=== PATIENT | male | born 1930 | race Caucasian/White ===

== ENCOUNTER 2019-05-19 09:37 | Inpatient (IN) | payer MEDICARE, OTHER ==
[2019-05-19] VITALS (7 sets, daily range): BP systolic 119–183; BP diastolic 62–123
[~2019-05-19] VITALS: Ht 182.8 cm; Wt 98.1 kg
[2019-05-19] MEDS ORDERED: DILTIAZEM 25 MG/5 ML INJ (CARDIZEM) VIAL IVP ONE ×2 (10:15→11:45)
--- NOTE | 2019-05-19 10:22 | ED Cardiac General ---
History of Present Illness General Chief Complaint: Cardiac/General Problems Stated Complaint: ELEV HR, BACK PAIN; BP 160/90 Nursing Triage Note: Patient c/o nausea, vomiting, elevated heart rate, and elevated blood pressure. Patient states that he started vomiting this moring and was seen by his pcp yesterday and started on digoxin for an elevated heart rate. Source: patient, family Exam Limitations: no limitations History of Present Illness Date Seen by Provider: May 19, 2019 Time Seen by Provider: 10:17 Initial Comments The patient is an 89-year-old white male who presents with a chief complaint of rapid heartbeat and nausea plus generalized malaise. He has recently been moved here from [place] by his family. He reports that he has had atrial fibrillation for some time. He had been off of his prescribed digitalis and Coumadin. He saw Dr. MCCORMICK yesterday and was placed back on digitalis and started on Pradaxa for anticoagulation purposes. He reports that today he awakened with nausea and general malaise. He was aware of his heart pounding. Yesterday it was said to be at 150/m. He does not have any known history of heart attack. He has not aware of his ejection fraction has might be obtained from echocardiogram. Timing/Duration: 4-6 hours Associated Systoms: Loss of Appetite, Nausea/Vomiting Allergies and Home Medications Allergies Coded Allergies: No Known Drug Allergies (Unverified , 05/19/19) Home Medications Bisacodyl 5 Mg Tablet, 10 MG PO HS, (Reported) TAKES 2 (5MG) TABLETS Diltiazem HCl 180 Mg Cap.er.24h, 360 MG PO DAILY Prescribed by: IFEANYI HIGUERA on 05/22/19955 Enoxaparin Sodium 100 Mg/1 Ml Syringe, 100 MG SC Q12H Prescribed by: IFEANYI HIGUERA on 05/22/19955 Lisinopril 20 Mg Tablet, 20 MG PO DAILY Prescribed by: IFEANYI HIGUERA on 05/22/19 09 Lovastatin 40 Mg Tablet, 40 MG PO HS, (Reported) Metoprolol Tartrate 50 Mg Tablet, 50 MG PO BID Prescribed by: IFEANYI HIGUERA on 05/22/19 09 Torsemide 10 Mg Tablet, 20 MG PO DAILY, (Reported) TAKES 2 (10MG) TABLETS Warfarin Sodium 3 Mg Tablet, 3 MG PO DAILY@1800 Prescribed by: IFEANYI HIGUERA on 05/22/19 0956 Zolpidem Tartrate 5 Mg Tablet, 5 MG PO HS, (Reported) [Sugar Support] , 1 CAP PO DAILY, (Reported) Patient Home Medication List Home Medication List Reviewed: Yes Review of Systems Review of Systems Constitutional: see HPI EENTM: No Symptoms Reported Respiratory: No Symptoms Reported Cardiovascular: See HPI, Irregular Heart Rate, Palpitations Gastrointestinal: Nausea Genitourinary: No Symptoms Reported Musculoskeletal: no symptoms reported Skin: no symptoms reported Psychiatric/Neurological: No Symptoms Reported Endocrine: No Symptoms Reported Hematologic/Lymphatic: No Symptoms Reported Past Zbrnxwv-Hstkbl-Vvknom Hx Patient Social History Alcohol Use: Denies Use Recreational Drug Use: No Smoking Status: Never a Smoker 2nd Hand Smoke Exposure: No Recent Foreign Travel: No Contact w/Someone Who Travel: No Recent Infectious Disease Expo: No Recent Hopitalizations: No Physical Abuse: No Sexual Abuse: No Mistreated: No Fear: No Seasonal Allergies Seasonal Allergies: No Past Medical History Surgeries: Yes Abdominal, Gallbladder, Orthopedic, Prostatectomy Respiratory: No Cardiac: Yes Atrial Fibrillation, Heart Attack, High Cholesterol, Hypertension Neurological: No Genitourinary: No Gastrointestinal: No Musculoskeletal: No Endocrine: No HEENT: No Cancer: No Psychosocial: No Integumentary: No Blood Disorders: No Physical Exam Vital Signs Capillary Refill : Less Than 3 Seconds Height, Weight, BMI Height: '" Weight: lbs. oz. kg; 29.00 BMI Method: General Appearance: Mild Distress, Moderate Distress HEENT: Normal ENT Inspection Respiratory: Chest Non Tender, Lungs Clear, Normal Breath Sounds, No Accessory Muscle Use, No Respiratory Distress Cardiovascular: Irregularly Irregular, Tachycardia Gastrointestinal: Normal Bowel Sounds, No Organomegaly Neurologic/Psychiatric: Alert, Oriented x3 Other comments 3+ and symmetric bilateral edema to just below the knees. There is red discoloration consistent with venous stasis dermatitis. The edema is relatively firm to palpation over the tibia. Progress/Results/Core Measures Results/Orders Lab Results Laboratory Tests Test 05/19/19 09:55 05/19/19 11:15 Range/Units White Blood Count 9.0 4.3-11.0 10^3/uL Red Blood Count 4.52 4.35-5.85 10^6/uL Hemoglobin 12.8 L 13.3-17.7 G/DL Hematocrit 40 40-54 % Mean Corpuscular Volume 89 80-99 FL Mean Corpuscular Hemoglobin 28 25-34 PG Mean Corpuscular Hemoglobin Concent 32 32-36 G/DL Red Cell Distribution Width 13.9 10.0-14.5 % Platelet Count 277 130-400 10^3/uL Mean Platelet Volume 12.3 H 7.4-10.4 FL Neutrophils (%) (Auto) 79 H 42-75 % Lymphocytes (%) (Auto) 13 12-44 % Monocytes (%) (Auto) 6 0-12 % Eosinophils (%) (Auto) 1 0-10 % Basophils (%) (Auto) 1 0-10 % Neutrophils # (Auto) 7.1 1.8-7.8 X 10^3 Lymphocytes # (Auto) 1.2 1.0-4.0 X 10^3 Monocytes # (Auto) 0.5 0.0-1.0 X 10^3 Eosinophils # (Auto) 0.1 0.0-0.3 10^3/uL Basophils # (Auto) 0.1 0.0-0.1 10^3/uL Sodium Level 139 135-145 MMOL/L Potassium Level 3.9 3.6-5.0 MMOL/L Chloride Level 96 L 98-107 MMOL/L Carbon Dioxide Level 26 21-32 MMOL/L Anion Gap 17 H 5-14 MMOL/L Blood Urea Nitrogen 30 H 7-18 MG/DL Creatinine 1.12 0.60-1.30 MG/DL Estimat Glomerular Filtration Rate > 60 BUN/Creatinine Ratio 27 Glucose Level 162 H 70-105 MG/DL Calcium Level 9.1 8.5-10.1 MG/DL Corrected Calcium 9.2 8.5-10.1 MG/DL Total Bilirubin 0.4 0.1-1.0 MG/DL Aspartate Amino Transf (AST/SGOT) 16 5-34 U/L Alanine Aminotransferase (ALT/SGPT) 7 0-55 U/L Alkaline Phosphatase 100 40-136 U/L Troponin I < 0.30 <0.30 NG/ML Total Protein 7.3 6.4-8.2 GM/DL Albumin 3.9 3.2-4.5 GM/DL Urine Color YELLOW Urine Clarity CLEAR Urine pH 6.0 5-9 Urine Specific [place] 1.010 L 1.016-1.022 Urine Protein NEGATIVE NEGATIVE Urine Glucose (UA) NEGATIVE NEGATIVE Urine Ketones NEGATIVE NEGATIVE Urine Nitrite NEGATIVE NEGATIVE Urine Bilirubin NEGATIVE NEGATIVE Urine Urobilinogen 0.2 NORMAL MG/DL Urine Leukocyte Esterase NEGATIVE NEGATIVE Urine RBC (Auto) NEGATIVE NEGATIVE Urine RBC RARE /HPF Urine WBC NONE /HPF Urine Squamous Epithelial Cells 0-2 /HPF Urine Crystals NONE /LPF Urine Bacteria NONE /HPF Urine Casts NONE /LPF Urine Mucus NEGATIVE /LPF Urine Culture Indicated NO My Orders Orders - LIZETTE CORDERO MD Cbc With Automated Diff (05/19/19 09:42) Comprehensive Metabolic Panel (05/19/19 09:42) Ua Culture If Indicated (05/19/19 09:42) Troponin I (05/19/19 09:42) Ekg Tracing (05/19/19 09:42) Diltiazem Injection (Cardizem Injection) (05/19/19 10:15) Ekg Tracing (05/19/19 10:55) Ondansetron Injection (Zofran Injectio (05/19/19 11:30) Diltiazem Injection (Cardizem Injection) (05/19/19 11:45) Medications Given in ED Vital Signs/I&O Blood Pressure Mean: 93 Departure Communication (Admissions) 1108 the patient is now controlled with a rate in the 90s. It would appear because he was taking Coumadin for 6 years that he has been chronically in atrial fibrillation. [address] Esparza hospitalist at [facility]. He accepts in transfer and will arrange cardiology Impression Primary Impression: Atrial fibrillation with RVR Additional Impression: venous stasis dermatitis Disposition: ADMITTED INPATIENT Condition: Stable/Unchanged Admissions Decision to Admit Reason: Admit from ER (General) Decision to Admit/Date: May 19, 2019 Time/Decision to Admit Time: 13:38 Departure-Patient Inst. Scripts Enoxaparin Sodium (Enoxaparin Sodium) 100 Mg/1 Ml Syringe 100 MG SC Q12H for 7 Days, #14 SYRINGE 0 Refills Prov: IFEANYI HIGUERA MD 05/22/19 Diltiazem HCl (Diltiazem 24Hr Cd) 180 Mg Cap.er.24h 360 MG PO DAILY for 90 Days, #180 CAP 0 Refills Prov: IFEANYI HIGUERA MD 05/22/19 Metoprolol Tartrate (Metoprolol Tartrate) 50 Mg Tablet 50 MG PO BID for 30 Days, #60 TAB 0 Refills Prov: IFEANYI HIGUERA MD 05/22/19 Warfarin Sodium (Coumadin) 3 Mg Tablet 3 MG PO DAILY@1800 for 30 Days, #30 TAB 0 Refills Prov: IFEANYI HIGUERA MD 05/22/19 Lisinopril (Lisinopril) 20 Mg Tablet 20 MG PO DAILY for 30 Days, #30 TAB 0 Refills Prov: IFEANYI HIGUERA MD 05/22/19 LIZETTE CORDERO MD May 19, 2019 10:22
[2019-05-19 10:33] LABS: BASOPHILS # (AUTO) 0.1 10^3/uL (0.0-0.1); BASOPHILS % (AUTO) 1 % (0-10); EOSINOPHILS # (AUTO) 0.1 10^3/uL (0.0-0.3); EOSINOPHILS % (AUTO) 1 % (0-10); HEMATOCRIT 40 % (40-54); HEMOGLOBIN 12.8 G/DL (13.3-17.7); LYMPHOCYTES # (AUTO) 1.2 X 10^3 (1.0-4.0); LYMPHOCYTES % (AUTO) 13 % (12-44); MEAN CORPUSCULAR HEMOGLOBIN 28 PG (25-34); MEAN CORPUSCULAR HGB CONC 32 G/DL (32-36); MEAN CORPUSCULAR VOLUME 89 FL (80-99); MEAN PLATELET VOLUME 12.3 FL (7.4-10.4); MONOCYTES # (AUTO) 0.5 X 10^3 (0.0-1.0); MONOCYTES % (AUTO) 6 % (0-12); NEUTROPHILS # (AUTO) 7.1 X 10^3 (1.8-7.8); NEUTROPHILS % (AUTO) 79 % (42-75); PLATELET COUNT 277 10^3/uL (130-400); RED CELL DISTRIBUTION WIDTH 13.9 % (10.0-14.5)
[2019-05-19 10:49] LABS: BILIRUBIN,TOTAL 0.4 MG/DL (0.1-1.0); BUN/CREATININE RATIO 27; CALCIUM 9.1 MG/DL (8.5-10.1); CARBON DIOXIDE 26 MMOL/L (21-32); CHLORIDE 96 MMOL/L (98-107); CREATININE SERUM 1.12 MG/DL (0.60-1.30); GFR ESTIMATED > 60; GLUCOSE 162 MG/DL (70-105); POTASSIUM 3.9 MMOL/L (3.6-5.0); SODIUM 139 MMOL/L (135-145)
[2019-05-19 10:50] LABS: ALANINE AMINOTRANSFERASE 7 U/L (0-55); ALBUMIN 3.9 GM/DL (3.2-4.5); ALKALINE PHOSPHATASE 100 U/L (40-136); TOTAL PROTEIN 7.3 GM/DL (6.4-8.2)
[2019-05-19 11:30] LABS: BILIRUBIN,URINE NEGATIVE (NEGATIVE); CLARITY,URINE CLEAR; COLOR,URINE YELLOW; GLUCOSE, URINE (UA) NEGATIVE (NEGATIVE); KETONES,URINE NEGATIVE (NEGATIVE); LEUKOCYTE ESTERASE ,URINE NEGATIVE (NEGATIVE); NITRITE,URINE NEGATIVE (NEGATIVE); PROTEIN,URINE NEGATIVE (NEGATIVE); RBC,URINE RARE /HPF; SQUAMOUS EPITHELIAL CELL,UR 0-2 /HPF; UROBILINOGEN,URINE 0.2 MG/DL (NORMAL)
[2019-05-19] MEDS ORDERED: ONDANSETRON 4 MG/2 ML (SDV) Z0FRAN IVP ONE (11:30)
--- NOTE | 2019-05-19 13:28 | NUR ---
Patient's watch was left with grandchildren. Pt's keys, jeans, shoes, shirt, socks and suspenders were put in personal belonging bag. Pt was changed into gown and yellow socks.
[2019-05-19] MEDS ORDERED: DILTIAZEM 25 MG/5 ML INJ (CARDIZEM) VIAL IVP NR (16:00)
[2019-05-19] MEDS ORDERED: CATHETER FLUSH 10 ML SYR IV PRN (16:15)
[2019-05-19] MEDS: NS IV 1000 ML 1,000 ML IV SCH (16:48)
[2019-05-19] MEDS: DILTIAZEM IV FOR DRIP 125 MG in NS (IVPB) 100 ML IV SCH (16:49)
--- NOTE | 2019-05-19 18:08 | Consultation-Cardiology ---
HPI-Cardiology Cardiology Consultation Date of Consultation 05/19/19 Date of Admission Time Seen by Provider: 18:03 Indication: atrial fibrillation HPI 89 years old gentleman with history of paroxysmal atrial fibrillation was on digoxin and warfarin until earlier this month, he moved to this area and establish with a new physician, digoxin was stopped and he was started on Xarel to 10 mg daily. This morning he woke up with nausea, abdominal pain, did not feel well and felt his heart racing. Went to the emergency room in [place] and noted to be in atrial fibrillation with rapid ventricular response. On my evaluation he expressed that he has been feeling slightly better, less nausea, still having abdominal discomfort. Denied any chest pain. No syncope or near syncopal episode. Has chronic pedal edema. No previous cardiac workup was done Home Medications & Allergies Allergies: Coded Allergies: No Known Drug Allergies (Unverified , 05/19/19) Home Medication List Reviewed: Yes UZX-Wgqngl-Rvfijy Hx Patient Social History Marital Status: Employed/Student: retired Alcohol Use: Denies Use Recreational Drug Use: No Smoking Status: Never a Smoker 2nd Hand Smoke Exposure: No Recent Foreign Travel: No Recent Infectious Disease Expo: No Recent Hopitalizations: No Past Medical History Discussed below Family Medical History Family Medical Hx Noncontributory to this current condition Review of Systems-General Review of Systems Constitutional: see HPI, malaise, weakness EENTM: see HPI, no symptoms reported Respiratory: see HPI; No cough; dyspnea on exertion; No hemoptysis, No orthopnea, No phlegm, No short of breath, No stridor, No wheezing, No other Cardiovascular: see HPI; No chest pain; edema; No Hx of Intervention; palpitations; No syncope, No vascular heart diseas, No other Gastrointestinal: RUQ, see HPI, nausea, vomiting Genitourinary: no symptoms reported, see HPI Musculoskeletal: no symptoms reported, see HPI Skin: no symptoms reported, see HPI Psychiatric/Neurological: No Symptoms Reported, See HPI Reviewed Test Results Reviewed Test Results Lab Laboratory Tests Test 05/19/19 09:55 05/19/19 11:15 Range/Units White Blood Count 9.0 4.3-11.0 10^3/uL Red Blood Count 4.52 4.35-5.85 10^6/uL Hemoglobin 12.8 L 13.3-17.7 G/DL Hematocrit 40 40-54 % Mean Corpuscular Volume 89 80-99 FL Mean Corpuscular Hemoglobin 28 25-34 PG Mean Corpuscular Hemoglobin Concent 32 32-36 G/DL Red Cell Distribution Width 13.9 10.0-14.5 % Platelet Count 277 130-400 10^3/uL Mean Platelet Volume 12.3 H 7.4-10.4 FL Neutrophils (%) (Auto) 79 H 42-75 % Lymphocytes (%) (Auto) 13 12-44 % Monocytes (%) (Auto) 6 0-12 % Eosinophils (%) (Auto) 1 0-10 % Basophils (%) (Auto) 1 0-10 % Neutrophils # (Auto) 7.1 1.8-7.8 X 10^3 Lymphocytes # (Auto) 1.2 1.0-4.0 X 10^3 Monocytes # (Auto) 0.5 0.0-1.0 X 10^3 Eosinophils # (Auto) 0.1 0.0-0.3 10^3/uL Basophils # (Auto) 0.1 0.0-0.1 10^3/uL Sodium Level 139 135-145 MMOL/L Potassium Level 3.9 3.6-5.0 MMOL/L Chloride Level 96 L 98-107 MMOL/L Carbon Dioxide Level 26 21-32 MMOL/L Anion Gap 17 H 5-14 MMOL/L Blood Urea Nitrogen 30 H 7-18 MG/DL Creatinine 1.12 0.60-1.30 MG/DL Estimat Glomerular Filtration Rate > 60 BUN/Creatinine Ratio 27 Glucose Level 162 H 70-105 MG/DL Calcium Level 9.1 8.5-10.1 MG/DL Corrected Calcium 9.2 8.5-10.1 MG/DL Total Bilirubin 0.4 0.1-1.0 MG/DL Aspartate Amino Transf (AST/SGOT) 16 5-34 U/L Alanine Aminotransferase (ALT/SGPT) 7 0-55 U/L Alkaline Phosphatase 100 40-136 U/L Troponin I < 0.30 <0.30 NG/ML Total Protein 7.3 6.4-8.2 GM/DL Albumin 3.9 3.2-4.5 GM/DL Urine Color YELLOW Urine Clarity CLEAR Urine pH 6.0 5-9 Urine Specific [place] 1.010 L 1.016-1.022 Urine Protein NEGATIVE NEGATIVE Urine Glucose (UA) NEGATIVE NEGATIVE Urine Ketones NEGATIVE NEGATIVE Urine Nitrite NEGATIVE NEGATIVE Urine Bilirubin NEGATIVE NEGATIVE Urine Urobilinogen 0.2 NORMAL MG/DL Urine Leukocyte Esterase NEGATIVE NEGATIVE Urine RBC (Auto) NEGATIVE NEGATIVE Urine RBC RARE /HPF Urine WBC NONE /HPF Urine Squamous Epithelial Cells 0-2 /HPF Urine Crystals NONE /LPF Urine Bacteria NONE /HPF Urine Casts NONE /LPF Urine Mucus NEGATIVE /LPF Urine Culture Indicated NO Physical Exam Physical Exam Vital Signs Vital Signs - First Documented 05/19/19 09:37 Temp 36.1 Pulse 125 Resp 14 B/P (MAP) 185/124 (144) 135/73 (93) Pulse Ox 96 O2 Delivery Room Air Capillary Refill : Less Than 3 Seconds Height, Weight, BMI Height: '" Weight: lbs. oz. kg; 29.92 BMI Method: General Appearance: Mild Distress Eyes: Bilateral Eye Normal Inspection, Bilateral Eye PERRL, Bilateral Eye EOMI HEENT: Normal ENT Inspection Neck: Full Range of Motion, Normal Inspection, Non Tender, Supple, Carotid Bruit Respiratory: Chest Non Tender, Lungs Clear, Normal Breath Sounds, No Accessory Muscle Use, No Respiratory Distress Cardiovascular: Systolic Murmur, Irregularly Irregular, Tachycardia Gastrointestinal: Normal Bowel Sounds, No Organomegaly Back: Normal Inspection, No CVA Tenderness, No Vertebral Tenderness Extremity: Normal Capillary Refill, Normal Inspection, Normal Range of Motion, Non Tender, No Calf Tenderness, Pedal Edema (+2 pedal edema) Neurologic/Psychiatric: Alert, Oriented x3 Skin: Normal Color, Warm/Dry Lymphatic: No Adenopathy A/P-Cardiology Admission Diagnosis Paroxysmal atrial fibrillation Hypertension Hyperlipidemia Palpitation Assessment/Plan Paroxysmal atrial fibrillation, back in atrial fibrillation with rapid response, was on digoxin and warfarin as an outpatient until 2 weeks ago when it was stopped. Has been maintained on Xarelto 10 mg daily by his primary care physician. I will change him to Eliquis 5 mg twice a day, started Cardizem drip and will try to achieve adequate heart rate control. Evaluate metabolic profile, TSH and echocardiogram Hypertension, currently on Cardizem drip, I will add metoprolol and evaluate tolerance and response. Hyperlipidemia, evaluate lipid profile. Peripheral edema, chronic, I will evaluate echo and start him on diuretics. Abdominal pain, right upper quadrant pain, diffuse abdominal discomfort, nausea and dry heaves, probably gastroenteritis, managed by primary care physician. Prediabetes. Managed by primary care physician Clinical Quality Measures DVT/VTE Risk/Contraindication: Risk Factor Score Per Nursin RFS Level Per Nursing on Admit: 2=Moderate PREM HARTMAN MD May 19, 2019 18:08
[2019-05-19] MEDS ORDERED: FUROSEMIDE 40 MG/4 ML INJ (LASIX) IVP NR (18:15)
[2019-05-19] MEDS ORDERED: POLYETHYLENE GLYCOL 17 GM (MIRALAX) PACK PO PRN (19:00)
[2019-05-19] MEDS ORDERED: cloNIDine 0.2 MG (CATAPRES) TAB PO PRN (19:45)
[2019-05-19] MEDS ORDERED: hydrALAZINE (APESOLINE) 20 MG/ML VIAL IV PRN (19:45)
[2019-05-19] MEDS ORDERED: ACETAMINOPHEN 325 MG TABLET PO PRN (19:45)
[2019-05-19] MEDS ORDERED: MELATONIN 3 MG TABLET PO PRN (19:45)
--- NOTE | 2019-05-19 19:46 | History & Physical-Hospitalist ---
History of Present Illness HPI/Chief Complaint Kd Bustos is an 89yoM with PMH HTN, AFib, prediabetes, who presented with malaise. He reports that he hasn't been feeling well lately. He denies chest pain and dyspnea. He denies palpitations. He denies fevers and chills. He reports abdominal pain, nausea, and vomiting. He denies diarrhea or constipation. He denies dysuria. He moved from [place] about two weeks ago. He ran out of his digoxin on Friday, then established with a new PCP on Friday and the digoxin was resumed. He was transitioned from Warfarin to Xarelto on Friday as well. He reports never being off anticoagulation. Source: patient, family Exam Limitations: no limitations Date Seen 05/19/19 Time Seen by a Provider: 16:30 Attending Physician Cara Higuera MD PCP No,Local Physician Referring Physician Date of Admission May 19, 2019 at 14:20 Home Medications & Allergies Home Medications Reviewed patient Home Medication Reconciliation performed by pharmacy medication reconciliations roof technician and/or nursing. Patients Allergies have been reviewed. Allergies Allergies Coded Allergies No Known Drug Allergies (Unverified05/19/19) Past Cganhzx-Xggygf-Ktvksn Hx Past Med/Social Hx: Reviewed Nursing Past Med/Soc Hx Patient Social History Marrital Status: Employed/Student: retired Alcohol Use: Denies Use Recreational Drug Use: No Smoking Status: Never a Smoker 2nd Hand Smoke Exposure: No Recent Foreign Travel: No Contact w/other who traveled: No Recent Hopitalizations: No Recent Infectious Disease Expo: No Seasonal Allergies Seasonal Allergies: No Past Medical History Surgeries: Abdominal, Gallbladder, Orthopedic, Prostatectomy Cardiac: Atrial Fibrillation, Heart Attack, High Cholesterol, Hypertension History of Blood Disorders: No Review of Systems Constitutional: malaise EENTM: no symptoms reported Respiratory: no symptoms reported Cardiovascular: no symptoms reported Gastrointestinal: abdominal pain, nausea, vomiting Genitourinary: no symptoms reported Musculoskeletal: no symptoms reported Skin: no symptoms reported Psychiatric/Neurological: No Symptoms Reported Physical Exam Physical Exam Vital Signs Vital Signs - First Documented 05/19/19 09:37 Temp 36.1 Pulse 125 Resp 14 B/P (MAP) 185/124 (144) 135/73 (93) Pulse Ox 96 O2 Delivery Room Air Capillary Refill : Less Than 3 Seconds Height, Weight, BMI Height: '" Weight: lbs. oz. kg; 29.92 BMI Method: General Appearance: No Apparent Distress, WD/WN, Other (pleasant) HEENT: PERRL/EOMI, Pharynx Normal Neck: Normal Inspection, Supple Respiratory: Lungs Clear, Normal Breath Sounds, No Respiratory Distress Cardiovascular: Irregularly Irregular, Tachycardia Gastrointestinal: Normal Bowel Sounds, Soft, Tenderness Extremity: Normal Inspection, Non Tender Neurologic/Psychiatric: Alert, Oriented x3 Skin: Normal Color, Warm/Dry Lymphatic: No Adenopathy Results Results/Procedures Labs Laboratory Tests 05/19/19 09:55 Patient resulted labs reviewed. Assessment/Plan Admission Diagnosis Atrial fibrillation with rapid ventricular response Admission Status: Inpatient Order (span 2 midnights) Reason for Inpatient Admission: HTN Assessment and Plan Atrial fibrillation with RVR -Started on Cardizem -Anticoagulate with Eliquis -Consult cardiology -Monitor electrolytes -Check TSH HTN -Continue metoprolol -Clonidine and IV hydralazine as needed Prediabetes -Check A1C -Accuchecks and SSI Diagnosis/Problems Diagnosis/Problems (1) Atrial fibrillation with RVR Status: Acute Clinical Quality Measures DVT/VTE Risk/Contraindication: Risk Factor Score Per Nursin RFS Level Per Nursing on Admit: 2=Moderate CARA HIGUERA MD May 19, 2019 19:46
[2019-05-19] MEDS: DOCUSATE SODIUM 100 MG (COLACE) CAP PO SCH (20:24)
[2019-05-19] MEDS: SENNA W/DOCUSATE (SENOKOT S) TABLET PO SCH (20:24)
[2019-05-19] MEDS: inSUlin ASPART (NovoLOG) 1 UNIT/0.01 ML (CHARGE PER UNIT) SC SCH (20:25)
[2019-05-19] MEDS ORDERED: APIXABAN 5 MG (ELIQUIS) TABLET PO SCH (21:00)
[2019-05-19] MEDS ORDERED: meTOprolol TARTRATE 25 MG (LOPRESSOR) TABLET PO SCH (21:00)
[2019-05-20] VITALS (20 sets, daily range): BP systolic 118–160; BP diastolic 63–120
[2019-05-20 03:00] LABS: HEMOGLOBIN 12.7 G/DL (13.3-17.7); MEAN PLATELET VOLUME 11.8 FL (7.4-10.4); RED CELL DISTRIBUTION WIDTH 14.2 % (10.0-14.5); WHITE BLOOD COUNT 8.8 10^3/uL (4.3-11.0)
[2019-05-20 03:23] LABS: ALANINE AMINOTRANSFERASE 7 U/L (0-55); ALBUMIN 3.6 GM/DL (3.2-4.5); ALKALINE PHOSPHATASE 86 U/L (40-136); BILIRUBIN,TOTAL 0.5 MG/DL (0.1-1.0); BUN/CREATININE RATIO 21; CALCIUM 9.3 MG/DL (8.5-10.1); CARBON DIOXIDE 28 MMOL/L (21-32); CHLORIDE 103 MMOL/L (98-107); CHOLESTEROL 143 MG/DL (< 200); GFR ESTIMATED 57; GLUCOSE 115 MG/DL (70-105); HDL CHOLESTEROL 34 MG/DL (40-60); MAGNESIUM 2.1 MG/DL (1.6-2.4); POTASSIUM 3.9 MMOL/L (3.6-5.0); SODIUM 142 MMOL/L (135-145); TOTAL PROTEIN 6.8 GM/DL (6.4-8.2); TRIGLYCERIDES 129 MG/DL (<150); VLDL CHOLESTEROL 26 MG/DL (5-40)
[2019-05-20] MEDS: DILTIAZEM IV FOR DRIP 125 MG in NS (IVPB) 100 ML IV SCH (03:26)
[2019-05-20] MEDS: inSUlin ASPART (NovoLOG) 1 UNIT/0.01 ML (CHARGE PER UNIT) SC SCH ×4 (05:51→21:39)
[2019-05-20] MEDS: FUROSEMIDE 40 MG/4 ML INJ (LASIX) IVP SCH ×2 (05:57→18:42)
--- NOTE | 2019-05-20 08:31 | Cardiology Progress Note ---
Subjective Date Seen by Provider: May 20, 2019 Time Seen by Provider: 08:28 Subjective/Events-last exam Patient is sitting in a chair, feeling better. No new complaint. No chest pain. Heart rate is slightly better controlled Review of Systems General: No Chills, No Night Sweats, No Fatigue, No Malaise, No Appetite, No Other HEENT: No Head Aches, No Visual Changes, No Eye Pain, No Ear Pain, No Dysphasia, No Sinus Congestion, No Post Nasal Drip, No Sore Throat, No Other Pulmonary: No Dyspnea, No Cough, No Pleuritic Chest Pain, No Other Cardiovascular: No: Chest Pain, Palpitations, Orthopnea, Paroxysmal Noc. Dyspnea, Edema, Lt Headedness, Other Objective-Cardiology Exam Last Set of Vital Signs Vital Signs 05/20/19 05/20/19 05/20/19 04:06 06:00 08:14 Temp 37.4 Pulse 94 Resp 18 B/P (MAP) 137/120 (126) Pulse Ox 94 O2 Delivery Room Air O2 Flow Rate 0.50 Capillary Refill : Less Than 3 Seconds I&O Intake and Output 05/20/19 00:00 Intake Total 100 ml Output Total 1475 ml Balance -1375 ml Intake Oral 100 ml Output Urine Total 1475 ml Daily Weight Change No No General: Alert, Oriented X3, Cooperative HEENT: Atraumatic, PERRLA Neck: Supple, No JVD, No Thyromegaly Lungs: Clear to Auscultation, Normal Air Movement Heart: Normal S1, Normal S2, Other (atrial fibrillation, systolic murmur at the left sternal border) Abdomen: Normal Bowel Sounds, Soft, No Tenderness, No Hepatosplenomegaly, No Masses Extremities: No Clubbing, No Cyanosis, No Edema, Normal Pulses, No Tenderness/S welling Skin: No Rashes, No Breakdown, No Significant Lesion Neuro: Normal Gait, Normal Speech, Strength at 5/5 X4 Ext, Normal Tone, Sensation Intact Psych/Mental Status: Mental Status NL, Mood NL Results Lab Laboratory Tests 05/19/19 09:55 05/20/19 02:55 A/P-Cardiology Admission Diagnosis Paroxysmal atrial fibrillation Hypertension Hyperlipidemia Palpitation Assessment/Plan Paroxysmal atrial fibrillation, back in atrial fibrillation with rapid response, was on digoxin and warfarin until recently. Currently on Cardizem drip heart rate is better controlled. I'll switch him to oral Cardizem. Will initiate warfarin back. [id number] score of 4, yearly risk of stroke without oral anticoagulation is 4 percent. Patient cannot take NOAC due to hyperthyroidism, need to be on Coumadin to reduce the risk of stroke, recommended INR is 2-3 Hyperthyroidism, TSH 0.03, workup is in progress, managed by primary care team Hypertension, we will switch to oral Cardizem and add RODY inhibitor and monitor tolerance and response Hyperlipidemia, evaluate lipid profile. Peripheral edema, chronic, evaluate echo, continue on diuretics Abdominal pain, right upper quadrant pain, diffuse abdominal discomfort, nausea and dry heaves, probably gastroenteritis, managed by primary care physician. Prediabetes. Managed by primary care physician Clinical Quality Measures DVT/VTE Risk/Contraindication: Risk Factor Score Per Nursin RFS Level Per Nursing on Admit: 2=Moderate PREM HARTMAN MD May 20, 2019 08:31
[2019-05-20] MEDS ORDERED: ENOXAPARIN 100 MG/1 ML (LOVENOX) SYR SC SCH (08:45)
[2019-05-20] MEDS ORDERED: ZOLP5TAB7 PO (09:28)
[2019-05-20] MEDS ORDERED: [UNRECOGNIZED DRUG - OTHER] PO (09:28)
[2019-05-20] MEDS ORDERED: CLON0.2T PO (09:28)
[2019-05-20] MEDS ORDERED: LOVA40TA2 PO (09:28)
[2019-05-20] MEDS ORDERED: LISI-552 PO (09:28)
[2019-05-20] MEDS ORDERED: METO50TA15 PO (09:28)
[2019-05-20] MEDS ORDERED: DIGO125T PO (09:28)
[2019-05-20] MEDS ORDERED: TORS10TA5 PO ×2 (09:28)
[2019-05-20] MEDS ORDERED: RIVA10TA PO (09:28)
[2019-05-20] MEDS ORDERED: BISA5TAB49 PO (09:28)
--- NOTE | 2019-05-20 09:29 | NUR ---
WENT OVER THE EXT MED HX WITH THE PATIENT. HE VERIFIED HOW HE TAKES EACH MEDICATION. HE STATES HE ALSO TAKES 2 LAXATIVES OTC AT BEDTIME. HE ALSO TAKES AN OTC SUGAR METABOLISM SUPPORT SUPPLEMENT EVERY MORNING.
[2019-05-20] MEDS: ENOXAPARIN 100 MG/1 ML (LOVENOX) SYR SC SCH ×2 (10:03→21:35)
[2019-05-20] MEDS: DOCUSATE SODIUM 100 MG (COLACE) CAP PO SCH ×2 (10:04→21:35)
[2019-05-20] MEDS: lisINopril 10 MG (PRINIVIL) TABLET PO SCH (10:05)
[2019-05-20] MEDS: meTOprolol TARTRATE 25 MG (LOPRESSOR) TABLET PO SCH ×2 (10:05→21:35)
[2019-05-20] MEDS: SENNA W/DOCUSATE (SENOKOT S) TABLET PO SCH ×2 (10:05→21:34)
--- NOTE | 2019-05-20 12:14 | Diagnostic Imaging Report ---
PROCEDURE: US Venous Lower Ext Ezequiel. TECHNIQUE: Multiple real-time grayscale images were obtained over the lower extremities in various projections, bilaterally. Additional duplex Doppler and color Doppler images were also obtained. INDICATION: Edema. FINDINGS: The common femoral, femoral, popliteal, and tibial veins demonstrate normal response to compression, augmentation, and Valsalva bilaterally. There is a Mejia's cyst on the left measuring 5 x 1.4 x 2.3 cm. There is a more complicated Mejia's cyst on the right measuring 8.5 x 2.9 x 3.9 cm. IMPRESSION: No evidence of deep venous thrombosis in either lower extremity. Bilateral Mejia's cysts. Dictated by: Dictated on workstation # [id number]
[2019-05-20] MEDS: DILTIAZEM 30 MG (CARDIZEM) TAB PO SCH ×2 (12:28→18:42)
[2019-05-20] MEDS: NS IV 1000 ML 1,000 ML IV SCH (12:30)
--- NOTE | 2019-05-20 13:00 | NUR ---
Initial visit with the pt and his grandson. Offered active listening as pt shared that he is and has lived by himself for several years. The pt said this year his physician told him he was no longer safe to live alone. I provided a safe place for free expression of feelings and facilitated sharing and processing of changes in his health and living situation. The pt demonstrates positive coping and appreciation for his grandson's presence and support. The pt's background is [employer]. No close affiliation at this time.
[2019-05-20 16:13] LABS: INR 1.2 (0.8-1.4); PROTHROMBIN TIME PATIENT 15.2 SEC (12.2-14.7)
--- NOTE | 2019-05-20 16:47 | Progress Note - Hospitalist ---
Subjective HPI/CC On Admission Date Seen by Provider: May 20, 2019 Time Seen by Provider: 08:30 MALAISE Subjective/Events-last exam He feels better today. His abdominal pain has resolved. He denies nausea and vom iting. He has not had any diarrhea. He denies chest pain and palpitations. He denies shortness of breath. He has no other complaints or concerns. Objective Exam Vital Signs Vital Signs Date Time Temp Pulse Resp B/P (MAP) Pulse Ox O2 Delivery O2 Flow Rate FiO2 05/20/19 16:00 37.0 73 23 119/75 (90) 93 Room Air 05/20/19 04:06 0.50 Capillary Refill : Less Than 3 Seconds General Appearance: No Apparent Distress, WD/WN HEENT: PERRL/EOMI, Pharynx Normal Neck: Normal Inspection, Supple Respiratory: Lungs Clear, Normal Breath Sounds, No Respiratory Distress Cardiovascular: Irregularly Irregular Gastrointestinal: Normal Bowel Sounds, Non Tender, Soft Extremity: Other (3+ bilateral pitting edema to the knees) Neurologic/Psychiatric: Alert, Oriented x3 Skin: Normal Color, Warm/Dry Lymphatic: No Adenopathy Results/Procedures Lab Laboratory Tests 05/20/19 02:55 Patient resulted labs reviewed. Assessment/Plan Assessment and Plan Assess & Plan/Chief Complaint Atrial fibrillation with RVR -Cardiology consulted, appreciate recommendations -Rates better controlled -Transition to oral diltiazem -With concern for hyperthyroidism, will transition back to Warfarin -Monitor INR daily Low TSH -Concern for hyperthyroidism -TSH 0.03 -Added on free T3/T4, T4 levels normal -Graves antibody testing pending HTN -Continue metoprolol -Clonidine and IV hydralazine as needed Prediabetes -A1C pending -Accuchecks and SSI Diagnosis/Problems Diagnosis/Problems (1) Atrial fibrillation with RVR Status: Acute (2) Low TSH level Status: Acute (3) HTN (hypertension) Status: Chronic Qualifiers: Hypertension type: essential hypertension Qualified Codes: I10 - Essential (primary) hypertension Clinical Quality Measures DVT/VTE Risk/Contraindication: Risk Factor Score Per Nursin RFS Level Per Nursing on Admit: 2=Moderate IFEANYI HIGUERA MD May 20, 2019 16:47
[2019-05-20] MEDS ORDERED: warFARin 5 MG (COUMADIN) TAB PO SCH (18:00)
[2019-05-20] MEDS ORDERED: PANTOPRAZOLE 40 MG (PROTONIX) TAB PO NR (20:15)
[2019-05-20] MEDS: ONDANSETRON 4 MG/2 ML (SDV) Z0FRAN IVP PRN (23:58)
[2019-05-21] MEDS: DILTIAZEM 30 MG (CARDIZEM) TAB PO SCH ×4 (01:16→17:54)
[2019-05-21] MEDS: FUROSEMIDE 40 MG/4 ML INJ (LASIX) IVP SCH ×2 (06:02→16:41)
[2019-05-21] MEDS: inSUlin ASPART (NovoLOG) 1 UNIT/0.01 ML (CHARGE PER UNIT) SC SCH ×4 (06:02→21:00)
[2019-05-21 06:04] VITALS: BP 138/88
[2019-05-21 06:21] LABS: BUN/CREATININE RATIO 17; CALCIUM 9.2 MG/DL (8.5-10.1); CARBON DIOXIDE 28 MMOL/L (21-32); CHLORIDE 102 MMOL/L (98-107); CREATININE SERUM 1.12 MG/DL (0.60-1.30); GFR ESTIMATED > 60; GLUCOSE 118 MG/DL (70-105); MAGNESIUM 2.1 MG/DL (1.6-2.4); POTASSIUM 4.1 MMOL/L (3.6-5.0); SODIUM 141 MMOL/L (135-145)
[2019-05-21 06:24] LABS: INR 1.1 (0.8-1.4); PROTHROMBIN TIME PATIENT 14.7 SEC (12.2-14.7)
[2019-05-21 08:00] VITALS: BP 144/72
[2019-05-21] MEDS: ENOXAPARIN 100 MG/1 ML (LOVENOX) SYR SC SCH ×2 (08:55→22:36)
[2019-05-21] MEDS: meTOprolol TARTRATE 25 MG (LOPRESSOR) TABLET PO SCH (08:56)
[2019-05-21] MEDS: SENNA W/DOCUSATE (SENOKOT S) TABLET PO SCH ×2 (08:56→22:35)
[2019-05-21] MEDS: PANTOPRAZOLE 40 MG (PROTONIX) TAB PO SCH (08:56)
[2019-05-21] MEDS: lisINopril 10 MG (PRINIVIL) TABLET PO SCH (08:56)
[2019-05-21] MEDS: DOCUSATE SODIUM 100 MG (COLACE) CAP PO SCH ×2 (08:57→22:34)
[2019-05-21] MEDS: ONDANSETRON 4 MG/2 ML (SDV) Z0FRAN IVP PRN (09:02)
--- NOTE | 2019-05-21 10:59 | Diagnostic Imaging Report ---
PROCEDURE: CT abdomen without contrast. TECHNIQUE: Multiple contiguous axial images were obtained through the abdomen without the use of intravenous contrast. Auto Exposure Controls were utilized during the CT exam to meet ALARA standards for radiation dose reduction. INDICATION: Abdominal pain. COMPARISON: No prior studies are available for comparison. FINDINGS: The heart is enlarged. There is a large hiatal hernia. The lungs are clear. Small low density in the inferior right lobe of the liver is noted, too small to characterize but most likely a cyst. This measures 7 mm. The gallbladder is surgically absent. No biliary duct dilatation is seen. The pancreas and spleen are unremarkable. No adrenal mass is detected. Kidneys are without evidence of calculi or hydronephrosis. Aorta is partially calcified but nonaneurysmal. No central retroperitoneal or mesenteric lymphadenopathy is seen. Visualized bowel loops are normal in caliber. There is no obstruction. There is diverticulosis of the descending colon. There is no ascites. IMPRESSION: 1. Large hiatal hernia. 2. Cardiomegaly. 3. Uncomplicated diverticulosis. 4. No acute feature is detected. Dictated by: Dictated on workstation # [id number]
--- NOTE | 2019-05-21 11:28 | Physical Therapy Evaluation ---
PT Evaluation-General Medical Diagnosis Admission Date May 19, 2019 at 14:20 Medical Diagnosis: A-fib with RVR Onset Date: May 19, 2019 Therapy Diagnosis Therapy Diagnosis: debility Height/Weight Weight (Pounds): 213 Weight (Ounces): 0.9 Precautions Precautions/Isolations: Fall Prevention, Standard Precautions Weight Bear Status Right Lower Extremity: Right Weight Bearing/Tolerated Left Lower Extremity: Left Weight Bearing/Tolerated Referral Physician: Regla Reason for Referral: Evaluation/Treatment Medical History Pertinent Medical History: Atrial Fib, HTN, CT Current History ER secondary to elevated HR and BP Reviewed History: Yes Social History Home: Single Level Current Living Status: Alone Entry Into Home: Level Entry Prior/Core FIM Prior Level of Function Therapy Code Descriptions/Definitions Functional [place] Measure: 0=Not Assessed/NA 4=Minimal Assistance 1=Total Assistance 5=Supervision or Setup 2=Maximal Assistance 6=Modified [place] 3=Moderate Assistance 7=Complete [place] Therapy Quality Codes: 6 Independent with activity with or without an assistive device 5 Patient requires set up or clean up by helper. Patient completes activity by themselves 4 Supervision or touching assist (CGA). [place] provide cues , steadying assist 3 The helper provides less than half the effort to complete the activity 2 The helper provides more than half the effort to complete the activity 1 Dependent. The helper does all the effort to complete an activity 7 Patient refused to complete or attempt activity 9 The patient did not perform the activity before the current illness or injury 88 Not attempted due to Medical conditions or safety concerns Functional Abilities and Goals: Independent: Patient completed the activities by him/herself, with or without an assistive device, with no assistance from a helper. Needed Some Help: Patient needed partial assistance from another person to complete activities. Dependent: A helper completed the activities for the patient. Unknown: Not Applicable: Bed Mobility: 6 Transfers (B,C,W/C) (FIM): 6 Gait: 6 Indoor Mobility (Ambulation): Independent Prior Devices Use: Other-see list below Prior Device Use: cane PT Evaluation-Current Subjective Patient is very agreeable to participate with PT. No c/o. Objective Patient Orientation: Normal For Age Problem Solving: Fair ROM/Strength ROM Lower Extremities bilateral LE WFL Strength Lower Extremities 4-/5 grossly bilateral LE Integumentary/Posture Integumentary refer to nursing notes Bowel Incontinence: No Bladder Incontinence: No Posture WFL Neuromuscular (Tone, Coordination, Reflexes) grossly intact Sensory Vision: Functional Hearing: Impaired Sensation Right Lower Extremit: Intact Sensation Left Lower Extremity: Intact Transfers Therapy Code Descriptions/Definitions Functional [place] Measure: 0=Not Assessed/NA 4=Minimal Assistance 1=Total Assistance 5=Supervision or Setup 2=Maximal Assistance 6=Modified [place] 3=Moderate Assistance 7=Complete [place] Transfers (B, C, W/C) (FIM): 6 Scootin Rollin Supine to/from Sit: 6 Sit to/from Stand: 6 Gait Mode of Locomotion: Walk Anticipated Mode of Locomotion: Walk Gait (FIM): 5 Distance (FIM): 3=150 ft Distance: 225' Gait Level of Assist: 5 Gait Assistive Device: FWW Comments/Gait Description slow, functional gait sequence/patient would benefit from FWW use at home for safety Balance Sitting Static: Normal Sitting Dynamic: Normal Standing Static: Normal Standing Dynamic: Normal Assessment/Needs 89 y.o. male, will be seen short term by skilled PT to address functional mobility to ensure safe return to home with home health intervention as he was receiving prior to admit. Rehab Potential: Fair PT Dairy Inspector Goals Dairy Inspector Goals PT Dairy Inspector Goals Time Frame: May 28, 2019 Transfers (B,C,W/C) (FIM): 6 Gait (FIM): 6 Gait distance (FIM): 3=150 ft Gait Level of Assist: 6 Gait Assistive Device: FWW PT Plan Problem List Problem List: Activity Tolerance Treatment/Plan Treatment Plan: Continue Plan of Care Treatment Plan: Bed Mobility, Education, Functional Activity Josh, Functional Strength, Gait, Safety, Therapeutic Exercise, Transfers Treatment Duration: May 28, 2019 Frequency: 6 times per week Estimated Hrs Per Day: .25 hour per day Patient and/or Family Agrees t: Yes Discharge Recommendations Therapy Discharge Recommendati: Post Acute PT (home health PT) Equpiment Recommendations-D/C: Front Wheeled Walker Time/GCodes Time In: 1100 Time Out: 1113 Total Billed Treatment Time: 13 Total Billed Treatment 1 visit EVModC 13 min NATHALIE BONILLA PT May 21, 2019 11:28
--- NOTE | 2019-05-21 11:47 | NUR ---
CM/SS spoke with patient and the family member in the room. They discussed that the patient does live alone but has family within 2mins of the home. He had HHC with [facility] and would like that resumed on discharge.
[2019-05-21 12:00] VITALS: BP 144/72
--- NOTE | 2019-05-21 12:55 | Progress Note - Hospitalist ---
Subjective HPI/CC On Admission Date Seen by Provider: May 21, 2019 Time Seen by Provider: 10:00 MALAISE Subjective/Events-last exam He reports nausea and abdominal pain. He denies any vomiting. He denies any di arrhea. He denies any fevers or chills. He denies any chest pain or palpitations. He denies any shortness of breath or cough. Objective Exam Vital Signs Vital Signs Date Time Temp Pulse Resp B/P (MAP) Pulse Ox O2 Delivery O2 Flow Rate FiO2 05/21/19 08:30 94 Room Air 05/21/19 08:00 36.3 97 20 144/72 (96) 05/21/19 06:04 0.50 0.50 Capillary Refill : Less Than 3 Seconds General Appearance: No Apparent Distress, WD/WN HEENT: PERRL/EOMI, Pharynx Normal Neck: Normal Inspection, Supple; No Thyromegaly Respiratory: Lungs Clear, Normal Breath Sounds, No Respiratory Distress Cardiovascular: Irregularly Irregular Gastrointestinal: Normal Bowel Sounds, Non Tender, Soft Extremity: Normal Inspection, Non Tender, Pedal Edema Neurologic/Psychiatric: Alert, Oriented x3 Skin: Normal Color, Warm/Dry Lymphatic: No Adenopathy Results/Procedures Lab Laboratory Tests 05/21/19 05:35 Patient resulted labs reviewed. Imaging: Reviewed Imaging Report Assessment/Plan Assessment and Plan Assess & Plan/Chief Complaint Nausea Abdominal pain -CT Abdomen performed showing large hiatal hernia -Consult surgery for possible EGD -Continue PPI Atrial fibrillation with RVR -Cardiology consulted, appreciate recommendations -Rates better controlled -Continue metoprolol and diltiazem -Continue warfarin with Lovenox bridge Low TSH -TSH 0.03 -T3 and T4 normal -Likely either euthyroid sick syndrome or thyroiditis HTN -Continue metoprolol and diltiazem -Clonidine and IV hydralazine as needed Prediabetes -A1C 5.8% -Accuchecks and SSI Diagnosis/Problems Diagnosis/Problems (1) Atrial fibrillation with RVR Status: Acute (2) Low TSH level Status: Acute (3) HTN (hypertension) Status: Chronic Qualifiers: Hypertension type: essential hypertension Qualified Codes: I10 - Essential (primary) hypertension (4) Prediabetes Status: Chronic (5) Hiatal hernia with GERD Status: Chronic Clinical Quality Measures DVT/VTE Risk/Contraindication: Risk Factor Score Per Nursin RFS Level Per Nursing on Admit: 2=Moderate IFEANYI HIGUERA MD May 21, 2019 12:55
--- NOTE | 2019-05-21 13:43 | Occupational Therapy Eval ---
OT Evaluation-General/PLF Medical Diagnosis Admission Date May 19, 2019 at 14:20 Medical Diagnosis: A-fib with RVR Onset Date: May 19, 2019 Therapy Diagnosis Therapy Diagnosis: decreased functional mobility and ADL Height/Weight Weight (Pounds): 213 Weight (Ounces): 0.9 Precautions Precautions/Isolations: Fall Prevention, Standard Precautions Safety Interventions: Reorient-PRN Weight Bear Status Weight Bearing Restriction: Weight Bearing/Tolerated Referral Physician: Regla Referral Reason: Activity Tolerance, Self Care, Evaluation/Treatment, Strengthening/ROM Medical History Pertinent Medical History: Atrial Fib, HTN, DC Additional Medical History PMHx: HTN, A-fib, prediabetes Pt states fall within the community due to knee "going out". Current History Per H&P: "Raul" ..."is an 89yoM with PMH HTN, AFib, prediabetes, who presented with malaise. He reports that he hasn't been feeling well lately. He denies chest pain and dyspnea. He denies palpitations. He denies fevers and chills. He reports abdominal pain, nausea, and vomiting. He denies diarrhea or constipation. He denies dysuria. He moved from [place] about two weeks ago. He ran out of his digoxin on Friday, then established with a new PCP on Friday and the digoxin was resumed. He was transitioned from Warfarin to Xarelto on Friday as well. He reports never being off anticoagulation." Reviewed History: Yes Social History Home: Single Level Current Living Status: Alone Entry Into Home: Level Entry Steps Into Home: 0 Steps Inside Home: 0 Pt has grandson and 2 minutes from home. Pt moved from [place] 2 weeks ago to live closer to relatives. ADL-Prior Level of Function Therapy Code Descriptions/Definitions Functional [place] Measure: 0=Not Assessed/NA 4=Minimal Assistance 1=Total Assistance 5=Supervision or Setup 2=Maximal Assistance 6=Modified [place] 3=Moderate Assistance 7=Complete [place] Therapy Quality Codes: 6 Independent with activity with or without an assistive device 5 Patient requires set up or clean up by helper. Patient completes activity by themselves 4 Supervision or touching assist (CGA). [place] provide cues , steadying assist 3 The helper provides less than half the effort to complete the activity 2 The helper provides more than half the effort to complete the activity 1 Dependent. The helper does all the effort to complete an activity 7 Patient refused to complete or attempt activity 9 The patient did not perform the activity before the current illness or in jury 88 Not attempted due to Medical conditions or safety concerns Functional Abilities and Goals: Independent: Patient completed the activities by him/herself, with or without an assistive device, with no assistance from a helper. Needed Some Help: Patient needed partial assistance from another person to complete activities. Dependent: A helper completed the activities for the patient. Unknown: Not Applicable: Self Care: Independent Functional Cognition: Independent DME/Equipment: Grab Bars DME/Equipment Comments Walk in shower, grab bars in shower FWW and cane used for fx mobility Occupation: retired Drive Self: No (Pt drove self up until 2 weeks prior to hospitalization. Pt's grandchildren have been driving pt. ) OT Current Status Subjective Pt seen reclined in bed, pt no c/o pain. pt states the bulletin board is moving across the wall. No nystagmus noted, pt able to track pen in different diagonal planes and track to/ from face. Pt's grandchildren present, states he has been saying board is moving for multiple hours. Pt oriented x4, pt states no vision problems but does wear glasses. Pt does not have glasses on. Pt agreeable to OT evaluation. Mental Status/Objective Patient Orientation: Person, Place, Time, Situation, Normal For Age Attachments: Telemetry Current Glasses/Contacts: Yes Hearing Aids: No Dentures/Partials: No Hand Dominance: Right Upper Extremity ROM WFL BUE Upper Extremity Coordination WFL Upper Extremity Sensation WFL, no c/o paresthesia Upper Extremity Strength 4-/5 BUE all planes ADL-Treatment Therapy Code Descriptions/Definitions Functional [place] Measure: 0=Not Assessed/NA 4=Minimal Assistance 1=Total Assistance 5=Supervision or Setup 2=Maximal Assistance 6=Modified [place] 3=Moderate Assistance 7=Complete [place] Therapy Quality Codes: 6 Independent with activity with or without an assistive device 5 Patient requires set up or clean up by helper. Patient completes activity by themselves 4 Supervision or touching assist (CGA). [place] provide cues , steadying assist 3 The helper provides less than half the effort to complete the activity 2 The helper provides more than half the effort to complete the activity 1 Dependent. The helper does all the effort to complete an activity 7 Patient refused to complete or attempt activity 9 The patient did not perform the activity before the current illness or injury 88 Not attempted due to Medical conditions or safety concerns Eating (FIM): 7 Grooming (FIM): 5 (s/u) Lower Body Dressing (FIM): 5 (SBA EOB for sock don/ doffing, pt demonstrates decreased sitting balance as he brings leg up to thigh) Transfers (B, C, W/C) (FIM): 5 (SBA) Other Treatments Pt states he has assist if needed, as grandchildren are 2 minutes away. pt states he was receiving OT/ PT HH services. Pt demonstrates decreased sitting/ standing balance during functional activities, requesting that he continues working on balance during activities to return home. Pt utilizes FWW to ambulate to recliner to sit. Pt sits with good control. Pt left with grandchildren present, call light in reach, all needs met. Education OT Patient Education: Correct positioning, Purpose of tx/functional activities, Rehab process, Safety issues, Transfer techniques Teaching Recipient: Patient Teaching Methods: Demonstration, Discussion Response to Teaching: Verbalize Understanding, Return Demonstration OT Short Term Goals Short Term Goals Grooming(FIM): 6 Upper Body Dressing(FIM): 5 Lower Body Dressing(FIM): 5 1=Demonstrate adherence to instructed precautions during ADL tasks. 2=Patient will verbalize/demonstrate understanding of assistive devices/modifications for ADL. 3=Patient will improve strength/tolerance for activity to enable patient to perform ADL's. OT Alf Goals Alf Goals Eating (FIM): 7 Grooming(FIM): 6 Upper Body Dressing(FIM): 6 Lower Body Dressing(FIM): 6 Toileting(FIM): 6 Transfers (B,C,W/C) (FIM): 6 Toilet/Commode Transfer(FIM): 6 Tub Transfer(FIM): 6 Additional Goals: 1-Demonstrate ADL Tasks, 2-Verbalize Understanding, 3- ImproveStrength/Josh 1=Demonstrate adherence to instructed precautions during ADL tasks. 2=Patient will verbalize/demonstrate understanding of assistive devices/modifications for ADL. 3=Patient will improve strength/tolerance for activity to enable patient to perform ADL's. OT Education/Plan Problem List/Assessment Assessment: Decreased Activ Tolerance, Decreased UE Strength, Impaired Funct Balance, Impaired I ADL's, Impaired Self-Care Skills Discharge Recommendations Plan/Recommendations: Continue POC Therapy Discharge Recommendati: Other, See Comments, Post Acute OT Patient/Family Goals Pt hopes to return home with grandchild assist for support. Treatment Plan/Plan of Care Treatment,Training & Education: Yes Patient would benefit from OT for education, treatment and training to promote independence in ADL's, mobility, safety and/or upper extremity function for ADL's. Plan of Care: ADL Retraining, Caregiver Training, Functional Mobility, Group Exercise/Act as Ind, UE Funct Exercise/Act Frequency: 5 times per week Estimated Hrs Per Day: .25 hour per day Agreement: Yes Rehab Potential: Fair Time/GCodes Start Time: 13:18 Stop Time: 13:34 Total Time Billed (hr/min): 16 Billed Treatment Time 1CANDY (16) TRENT STONER OTR May 21, 2019 13:43
--- NOTE | 2019-05-21 13:55 | Cardiology Progress Note ---
Subjective Date Seen by Provider: May 21, 2019 Time Seen by Provider: 13:53 Subjective/Events-last exam Patient is sitting in a chair, complaining of dizziness and nausea. No chest pain. Still borderline tachycardic Review of Systems General: No Chills, No Night Sweats; Fatigue; No Malaise, No Appetite, No Other HEENT: No Head Aches, No Visual Changes, No Eye Pain, No Ear Pain, No Dysphasia, No Sinus Congestion, No Post Nasal Drip, No Sore Throat, No Other Pulmonary: No Dyspnea, No Cough, No Pleuritic Chest Pain, No Other Cardiovascular: Palpitations; No: Chest Pain, Orthopnea, Paroxysmal Noc. Dyspnea, Edema, Lt Headedness, Other Gastrointestinal: Nausea, Abdominal Pain Objective-Cardiology Exam Last Set of Vital Signs Vital Signs 05/21/19 05/21/19 06:04 12:00 Temp 36.2 Pulse 95 Resp 20 B/P (MAP) 144/72 (96) Pulse Ox 95 O2 Delivery Room Air O2 Flow Rate 0.50 0.50 Capillary Refill : Less Than 3 Seconds I&O Intake and Output 05/21/19 00:00 Intake Total 1025 ml Output Total 1175 ml Balance -150 ml Intake Oral 700 ml IV Total 325 ml Output Urine Total 1175 ml # Voids 4 General: Alert, Oriented X3, Cooperative HEENT: Atraumatic, PERRLA Neck: Supple, No JVD, No Thyromegaly Lungs: Clear to Auscultation, Normal Air Movement Heart: Normal S1, Normal S2, Other (atrial fibrillation, systolic murmur at the left sternal border) Abdomen: Normal Bowel Sounds, Soft, No Tenderness, No Hepatosplenomegaly, No Masses Extremities: No Clubbing, No Cyanosis, No Edema, Normal Pulses, No Tenderness/Swelling Skin: No Rashes, No Breakdown, No Significant Lesion Neuro: Normal Gait, Normal Speech, Strength at 5/5 X4 Ext, Normal Tone, Sensation Intact Psych/Mental Status: Mental Status NL, Mood NL Results Lab Laboratory Tests 05/21/19 05:35 A/P-Cardiology Admission Diagnosis Paroxysmal atrial fibrillation Hypertension Hyperlipidemia Palpitation Assessment/Plan Paroxysmal atrial fibrillation, back in atrial fibrillation with rapid response, was on digoxin and warfarin until recently, currently on Cardizem 90 every 6 hours, Lopressor 50 twice a day and being loaded with Coumadin. Continue to monitor [id number] score of 4, yearly risk of stroke without oral anticoagulation is 4 percent. Patient cannot take NOAC due to hyperthyroidism, need to be on Coumadin to reduce the risk of stroke, recommended INR is 2-3 Hyperthyroidism, TSH 0.03, workup is in progress, managed by primary care team Hypertension, tolerating current medication. Continue to monitor Abdominal pain, nausea, vertigo and managed by primary care team Hyperlipidemia, evaluate lipid profile. Peripheral edema, chronic, evaluate echo, continue on diuretics Abdominal pain, right upper quadrant pain, diffuse abdominal discomfort, nausea and dry heaves, probably gastroenteritis, managed by primary care physician. Prediabetes. Managed by primary care physician Clinical Quality Measures DVT/VTE Risk/Contraindication: Risk Factor Score Per Nursin RFS Level Per Nursing on Admit: 2=Moderate PREM HARTMAN MD May 21, 2019 13:55
--- NOTE | 2019-05-21 14:36 | CONSULTATION REPORT ---
DATE OF SERVICE: 05/21/2019 ADMITTING PHYSICIAN: Dr. Arauz. HISTORY OF PRESENT ILLNESS: The patient is an 89-year-old male with a past medical history of hypertension, atrial fibrillation as well as diabetes, who presented with weakness. He does not have a primary care physician in the area and did recently moved [place] a different [place]. He states that he did run out of digoxin. He was also recently transitioned from warfarin to Xarelto. A CT scan was performed, which did show a significant-sized hiatal hernia. The patient reports that he knows about this and did have a hiatal hernia that was symptomatic with gastroesophageal reflux disease. He underwent somewhat sounds to be some form of antireflux procedure; however, has had reoccurrence of the hiatal hernia. The patient's hemoglobin is stable and does not show any signs or symptoms of Tray ulceration, bleeding or gastric volvulus. PAST MEDICAL HISTORY: Gastroesophageal reflux disease, hiatal hernia, hypertension, atrial fibrillation, history of myocardial infarction, and hypercholesterolemia. PAST SURGICAL HISTORY: Cholecystectomy, prostatectomy, repair traumatic diaphragmatic rupture 09 ALLERGIES: No known drug allergies. MEDICATIONS: Clonidine 0.2 mg t.i.d., digoxin 125 mcg daily, lisinopril 20 mg daily, lovastatin 40 mg daily, metoprolol 50 mg daily, Xarelto 10 mg daily, torsemide 20 mg a.m. and 10 mg p.m., and zolpidem 5 mg each day at bedtime. SOCIAL HISTORY: Negative smoke. Negative alcohol. FAMILY HISTORY: Noncontributory. Vital signs - temperature is 36.2, blood pressure 144/72, pulse 95, respirations 20, and pulse ox 95% on room air. REVIEW OF SYSTEMS: Well-nourished male, currently in no acute distress. He is not experiencing any shortness of breath or difficulty breathing. No chest pain, palpitations or diaphoresis. Mild intermittent episodes of epigastric discomfort as well as reflux as well as a mild dysphagia. No hematemesis, no coffee ground emesis. No significant epigastric pain. Bowel movements are normal. No red blood per rectum, no dark tarry stools. No fever or chills, no recent inadvertent weight loss. All other review of systems is negative. PHYSICAL EXAMINATION: CHEST: Few scattered rales and rhonchi bilaterally. HEART: Regular, no murmurs. EXTREMITIES: No lower extremity edema, negative Homans sign. HEENT: No scleral icterus. NECK: No cervical lymphadenopathy. ABDOMEN: Soft, nondistended. There is mild discomfort upon deep palpation of the epigastric region. No peritoneal signs. SKIN: Warm, dry. LABORATORY DATA: WBC is 8.8, hemoglobin 12.7, hematocrit 40, and platelets 254. BUN is 19, creatinine 1.12. ASSESSMENT AND PLAN: This is an 89-year-old male with a large moderately asymptomatic hiatal hernia. This gentleman does not show any signs of gastric volvulus, significant dysphagia nor any Tray ulceration or anemia, we will recommend conservative therapy with continued medical therapy with the necessary lifestyle and diet accommodation including small and more frequent meals, avoidance of eating at night as well as head elevation while lying supine. He also needs to avoid caffeinated beverages, spicy, greasy and acidic foods. Due to the size of the lesion and his past medical history, at this point in his risk of prohibitive for major recurrent mediastinal surgery and hiatal hernia repair. Job ID: [id number] DocumentID: [id number] Dictated Date: 05/21/2019 13:57:27 Door Opener Date: 05/21/2019 14:35:12 Dictated By: JANE STALLWORTH MD MTDD
--- NOTE | 2019-05-21 14:53 | NUR ---
CM/SS called [facility] to inform them that the patient was in the hospital and would most likely be discharging this or Friday. Faxed over current information ([phone]). Will let the nurse know to call [facility]'s certified professional ergonomist nurse (Nicol) if patient discharges this weekend. Addendum: 05/21/19 at 1500 by DEVON BLAS Reviewed and approved.
[2019-05-21 16:00] VITALS: BP 130/66
[2019-05-21] MEDS ORDERED: warFARin 3 MG (COUMADIN) TAB PO SCH (18:00)
[2019-05-21 19:42] VITALS: BP 138/62
[2019-05-21] MEDS ORDERED: meTOprolol TARTRATE 25 MG (LOPRESSOR) TABLET PO SCH (21:00)
[2019-05-21] MEDS: POLYETHYLENE GLYCOL 17 GM (MIRALAX) PACK PO SCH (22:34)
[2019-05-21] MEDS: meTOprolol TARTRATE 50 MG (LOPRESSOR) TAB PO SCH (22:35)
[2019-05-22] MEDS: DILTIAZEM 30 MG (CARDIZEM) TAB PO SCH ×2 (00:31→08:34)
[2019-05-22 00:58] VITALS: BP 133/69
[2019-05-22 04:43] VITALS: BP 146/69
[2019-05-22 05:35] LABS: INR 1.2 (0.8-1.4); PROTHROMBIN TIME PATIENT 15.6 SEC (12.2-14.7)
[2019-05-22 05:42] LABS: CALCIUM 9.4 MG/DL (8.5-10.1); CREATININE SERUM 1.34 MG/DL (0.60-1.30); POTASSIUM 4.1 MMOL/L (3.6-5.0)
[2019-05-22] MEDS: inSUlin ASPART (NovoLOG) 1 UNIT/0.01 ML (CHARGE PER UNIT) SC SCH (05:49)
[2019-05-22] MEDS: FUROSEMIDE 40 MG/4 ML INJ (LASIX) IVP SCH (06:58)
[2019-05-22 08:00] VITALS: BP 127/76
--- NOTE | 2019-05-22 08:00 | NUR ---
Mayito pulled for another floor, pt in bathroom when returned, Medication given to Dayshift RN to give to pt;
[2019-05-22] MEDS: DOCUSATE SODIUM 100 MG (COLACE) CAP PO SCH (08:33)
[2019-05-22] MEDS: SENNA W/DOCUSATE (SENOKOT S) TABLET PO SCH (08:34)
[2019-05-22] MEDS: meTOprolol TARTRATE 50 MG (LOPRESSOR) TAB PO SCH (08:34)
[2019-05-22] MEDS: PANTOPRAZOLE 40 MG (PROTONIX) TAB PO SCH (08:34)
[2019-05-22] MEDS: lisINopril 10 MG (PRINIVIL) TABLET PO SCH (08:34)
[2019-05-22] MEDS: POLYETHYLENE GLYCOL 17 GM (MIRALAX) PACK PO SCH (08:35)
[2019-05-22] MEDS: ENOXAPARIN 100 MG/1 ML (LOVENOX) SYR SC SCH (08:35)
--- NOTE | 2019-05-22 08:50 | Cardiology Progress Note ---
Subjective Date Seen by Provider: May 22, 2019 Time Seen by Provider: 08:49 Subjective/Events-last exam Patient is sitting in a chair, feeling better. No new complaint. Review of Systems General: No Chills, No Night Sweats, No Fatigue, No Malaise, No Appetite, No Other HEENT: No Head Aches, No Visual Changes, No Eye Pain, No Ear Pain, No Dysphasia, No Sinus Congestion, No Post Nasal Drip, No Sore Throat, No Other Pulmonary: No Dyspnea, No Cough, No Pleuritic Chest Pain, No Other Cardiovascular: No: Chest Pain, Palpitations, Orthopnea, Paroxysmal Noc. Dyspnea, Edema, Lt Headedness, Other Objective-Cardiology Exam Last Set of Vital Signs Vital Signs 05/21/19 05/22/19 05/22/19 06:04 04:43 07:00 Temp 35.6 Pulse 128 Resp 16 B/P (MAP) 146/69 (94) Pulse Ox 92 O2 Delivery Room Air O2 Flow Rate 0.50 0.50 Capillary Refill : Less Than 3 Seconds I&O Intake and Output 05/22/19 00:00 Intake Total 1730 ml Output Total 650 ml Balance 1080 ml Intake Oral 1730 ml Output Urine Total 650 ml General: Alert, Oriented X3, Cooperative HEENT: Atraumatic, PERRLA Neck: Supple, No JVD, No Thyromegaly Lungs: Clear to Auscultation, Normal Air Movement Heart: Normal S1, Normal S2, Other (atrial fibrillation, systolic murmur at the left sternal border) Abdomen: Normal Bowel Sounds, Soft, No Tenderness, No Hepatosplenomegaly, No Masses Extremities: No Clubbing, No Cyanosis, No Edema, Normal Pulses, No Tenderness/Swelling Skin: No Rashes, No Breakdown, No Significant Lesion Neuro: Normal Gait, Normal Speech, Strength at 5/5 X4 Ext, Normal Tone, Sens ation Intact Psych/Mental Status: Mental Status NL, Mood NL Results Lab Laboratory Tests 05/22/19 04:45 A/P-Cardiology Admission Diagnosis Paroxysmal atrial fibrillation Hypertension Hyperlipidemia Palpitation Assessment/Plan Paroxysmal atrial fibrillation, still borderline tachycardic, I increase Lopressor to 50 mg twice daily, I am changing Cardizem to CD 380 daily, and monitor tolerance and response [id number] score of 4, yearly risk of stroke without oral anticoagulation is 4 percent. Patient cannot take NOAC due to hyperthyroidism, need to be on Coumadin to reduce the risk of stroke, recommended INR is 2-3 Hyperthyroidism, TSH 0.03, workup is in progress, managed by primary care team Hypertension, tolerating current medication. Continue to monitor Abdominal pain, nausea, large hiatal hernia noted on CT, Dr. Baron consulted and recommended conservative management Vertigo. Managed by primary care team Hyperlipidemia, evaluate lipid profile. Peripheral edema, chronic, evaluate echo, continue on diuretics Abdominal pain, right upper quadrant pain, diffuse abdominal discomfort, nausea and dry heaves, probably gastroenteritis, managed by primary care physician. Prediabetes. Managed by primary care physician Clinical Quality Measures DVT/VTE Risk/Contraindication: Risk Factor Score Per Nursin RFS Level Per Nursing on Admit: 2=Moderate PREM HARTMAN MD May 22, 2019 08:50
[2019-05-22] MEDS ORDERED: DILTIAZEM 180 MG (CARDIZEM CD) CAP PO SCH (09:00)
[2019-05-22] MEDS ORDERED: DILT180C90 PO (09:56)
[2019-05-22] MEDS ORDERED: WARF3TAB PO (09:56)
[2019-05-22] MEDS ORDERED: METO50TA15 PO (09:56)
[2019-05-22] MEDS ORDERED: ENOX100D4 SC (09:56)
[2019-05-22] MEDS ORDERED: LISI-552 PO (09:56)
--- NOTE | 2019-05-22 10:12 | Discharge Summary ---
Discharge Summary Reconcile Patient Problems Problems Reviewed?: Yes Instructions for Patient Via Suzanna Ecomsual, Assessment/Instructions Take medications as prescribed. Begin taking Diltiazem 360 mg daily and Metoprolol 50 mg twice daily for atrial fibrillation. Also take Warfarin 3 mg daily and Lovenox 100 mg twice daily for anticoagulation. You will take the Lovenox until your INR is in the therapeutic range (2-3). Resume home health. Check an INR early next week. Follow up with Dr. Rey in about a week. Lior alaniz up with Cardiology. Physician to follow Patient: Krissy Discharge Diet for Home: Cardiac Diet Hospital Course Date of Admission: May 19, 2019 at 14:20 Admission Diagnosis : Atrial fibrillation with RVR Family Physician/Provider: Nakia Arias Physician Date of Discharge: 05/22/19 Discharge Diagnosis: Atrial fibrillation with RVR Hospital Course: 89-year-old male with past medical history of hypertension, atrial fibrillation, who presented with atrial fibrillation with rapid ventricular response. He was started on IV Cardizem and responded well. He was transitioned to oral Cardizem as well as metoprolol. He was found to have a suppressed TSH. His T3 and T4 were normal. It is unclear if the suppressed TSH is due to subclinical hyperthyroidism, euthyroid sick syndrome, or a thyroiditis. He should have a repeat TSH in 6-8 weeks. Due to the concern for hyperthyroidism, he was started on warfarin. He was also started on Lovenox as a bridge. He will need an INR checked early next week with [facility]. He will follow up with Dr. Knott as an outpatient for his atrial fibrillation. Labs and Pending Lab Test: Laboratory Tests 05/21/19 11:16: Glucometer 100 05/21/19 15:36: Glucometer 143H 05/21/19 20:33: Glucometer 124H 05/22/19 04:45: Prothrombin Time 15.6H, INR Comment 1.2, Sodium Level 140, Potassium Level 4.1, Chloride Level 101, Carbon Dioxide Level 27, Anion Gap 12, Blood Urea Nitrogen 20H, Creatinine 1.34H, Estimat Glomerular Filtration Rate 50, BUN/Creatinine Ratio 15, Glucose Level 111H, Calcium Level 9.4 05/22/19 05:00: Glucometer 125H Home Meds Active Enoxaparin Sodium 100 Mg/1 Ml Syringe 100 Mg SC Q12H 7 Days Diltiazem 24Hr Cd (Diltiazem HCl) 180 Mg Cap.er.24h 360 Mg PO DAILY 90 Days Metoprolol Tartrate 50 Mg Tablet 50 Mg PO BID 30 Days Coumadin (Warfarin Sodium) 3 Mg Tablet 3 Mg PO DAILY@1800 30 Days Lisinopril 20 Mg Tablet 20 Mg PO DAILY 30 Days Reported [Sugar Support] 1 Cap PO DAILY Laxative (Bisacodyl) 5 Mg Tablet 10 Mg PO HS TAKES 2 (5MG) TABLETS Lovastatin 40 Mg Tablet 40 Mg PO HS Metoprolol Tartrate 50 Mg Tablet 50 Mg PO TID Torsemide 10 Mg Tablet 10 Mg PO 1300 Torsemide 10 Mg Tablet 20 Mg PO DAILY TAKES 2 (10MG) TABLETS Clonidine HCl 0.2 Mg Tablet 0.2 Mg PO 0800,1500,2100 Xarelto (Rivaroxaban) 10 Mg Tablet 10 Mg PO DAILY Zolpidem Tartrate 5 Mg Tablet 5 Mg PO HS Digoxin 125 Mcg Tablet 125 Mcg PO DAILY Consulations Cardiology Patient Allergies: Coded Allergies: No Known Drug Allergies (Unverified , 05/19/19) Weight (Pounds): 216 Weight (Ounces): 4.2 Home Health Need/Face to Face Date of Face to Face: May 22, 2019 Clinical Findings: Generalized weakness and fatigue, Instability, Muscle weakness I have seen Pt [id number]: Yes Discharged To: Home Diagnosis/Conditions: Atrial fibrillation, Hiatal hernia Patient is Homebound due to: Fer fall risk due to instabilty, Muscle weakness Homebound Status Due to the above stated illness, injury or surgical procedure (medical condition or diagnosis) and associated clinical findings, the patient is homebound because of his/her inability to leave home except with aid of a sup portive device and/or person AND leaving the home requires a considerable and taxing effort or is medically contraindicated. Pt req the following assistanc: Aid of another person, [facility] Nursing Orders Home Health Services Order: Nursing Services, Physical Therapy-Evaluate & Treat Home Health Infusion Therapy Line Start Date: May 19, 2019 Home Health Lab Orders PT/INR (times/week): 2 May use PT/INR meter: Yes Planned Date for 1st INR: May 24, 2019 Goal INR Range: 2-3 Therapy Orders Therapy Orders: Physical Therapy, PT to assess for OT Therapy Specific Orders: Eval assistive deivces, Teach enviro modifications/safety, Gait training, Increase strength/endurance Certify Stmt I certify that this patient is under my care and that I, a nurse practitioner or a physician; a warehouse administrative assistant working with me, had a face to face encounter that - meets the physician face to face encounter requirements with this patient as dated. Discharge Physical Exam General: Alert, Oriented X3, Cooperative HEENT: Atraumatic, EOMI Lungs: Clear to Auscultation, Normal Air Movement Heart: Other (irregularly irregular, tachycardic) Abdomen: Normal Bowel Sounds, Soft, No Tenderness Extremities: Other (2+ edema bilateral lower extremities) Skin: No Rashes Psych/Mental Status: Mental Status NL, Mood NL IFEANYI HIGUERA MD May 22, 2019 10:11
[2019-05-22 12:10] VITALS: BP 127/76
--- NOTE | 2019-05-24 08:13 | NUR ---
CM/SS sent via fax finalized discharge instructions to [facility] in [place].
== END 2019-05-22 12:15 | disposition home health service (06) | DRG 310 ==
LOC: ER FS 09:43 → ICU 14:20 → 4TH 05-20 16:35
PROVIDERS: ADMIT Internal Medicine; ATTEND Internal Medicine
DX: I48.0 Paroxysmal atrial fibrillation (principal); I10 Essential (primary) hypertension; K52.9 Noninfective gastroenteritis and colitis, unspecified; R73.03 Prediabetes; R60.0 Localized edema; R53.81 Other malaise; I25.2 Old myocardial infarction; E78.00 Pure hypercholesterolemia, unspecified; I87.2 Venous insufficiency (chronic) (peripheral); R63.0 Anorexia; E78.5 Hyperlipidemia, unspecified; R94.6 Abnormal results of thyroid function studies; K44.9 Diaphragmatic hernia without obstruction or gangrene; K21.9 Gastro-esophageal reflux disease without esophagitis; Z79.01 Long term (current) use of anticoagulants
CPT/HCPCS: 36415; 74150; 80048; 80053; 80061; 81000; 82962; 83036; 83735; 84439; 84443; 84445; 84481; 84484; 85025; 85027; 85610; 86376; 93005; 93970; 96374; 96375; 96376

== ENCOUNTER → 2021-01-05 | Outpatient (CLI) | payer MEDICARE ==
[~2021-01-05] MED LIST: BISA5TAB49 PO; CLN.2T PO; DIGO125T3 PO; DILT-28 PO; ENOX100D4 SC; LISI20TA26 PO; LOVA40TA2 PO; METO50TA15 PO; RIVA10TA PO; TORS10TA5 PO; WARF3TAB PO; ZOLP5TAB7 PO; [UNRECOGNIZED DRUG - OTHER] PO
== END ==
LOC: CARD 13:54
PROVIDERS: ATTEND Emergency Medicine
DX: I08.0 Rheumatic disorders of both mitral and aortic valves (principal); I48.20 Chronic atrial fibrillation, unspecified; I11.0 Hypertensive heart disease with heart failure; I50.22 Chronic systolic (congestive) heart failure
CPT/HCPCS: 93306

== ENCOUNTER 2021-03-10 11:33 | Emergency (ER) | payer MEDICARE ==
[~2021-03-10] VITALS: Ht 182 cm; Wt 108.0 kg
[2021-03-10] MEDS ORDERED: fentaNYL INJ 100 MCG/2 ML AMP IVP STA (12:37)
--- NOTE | 2021-03-10 12:47 | ED General ---
General Chief Complaint: Upper Extremity Stated Complaint: L ARM PAIN/FEVER Nursing Triage Note: PT SENT TO ED BY DR DEVON Cuellar POSSIBLE SEPSIS FROM L ARM. PT HYPOTENSIVE AND FEBRILE AT OFFICE Source of Information: Patient Exam Limitations: No Limitations History of Present Illness Date Seen by Provider: Mar 10, 2021 Time Seen by Provider: 12:29 Initial Comments Here with report of left wrist and arm pain has been going on for about a week. Was seen at Dr. MCCORMICK's office today and was found to be hypotensive there with blood pressure 90/60. That did not translate to here as his blood pressure is normal currently. States that about 2 weeks ago he had a bug bite to the left hand that was quite itchy. A week later he started with the swelling that has worsened daily and now has pain radiating from the wrist to the elbow on the left. Denies fevers or chills. States that his appetite has been decreased since starting digoxin in the last week. Denies dysuria or diarrhea. Does have history of gout but usually involves the left or right great toe. Timing/Duration: 1 Week, Getting Worse Severity: Moderate Associated Systoms: No Chest Pain, No Cough, No Fever/Chills, No Shortness of Air, No Weakness Allergies and Home Medications Allergies Coded Allergies: No Known Drug Allergies (Unverified , 05/19/19) Home Medications Bisacodyl 5 Mg Tablet, 10 MG PO HS, (Reported) TAKES 2 (5MG) TABLETS Diltiazem HCl 180 Mg Cap.er.24h, 360 MG PO DAILY Prescribed by: IFEANYI HIGUERA on 05/22/19955 Enoxaparin Sodium 100 Mg/1 Ml Syringe, 100 MG SC Q12H Prescribed by: IFEANYI HIGUERA on 05/22/19955 Lisinopril 20 Mg Tablet, 20 MG PO DAILY Prescribed by: IFEANYI HIGUERA on 05/22/19955 Lovastatin 40 Mg Tablet, 40 MG PO HS, (Reported) Metoprolol Tartrate 50 Mg Tablet, 50 MG PO BID Prescribed by: IFEANYI HIGUERA on 05/22/19955 Torsemide 10 Mg Tablet, 20 MG PO DAILY, (Reported) TAKES 2 (10MG) TABLETS Warfarin Sodium 3 Mg Tablet, 3 MG PO DAILY@1800 Prescribed by: IFEANYI HIGUERA on 05/22/19955 Zolpidem Tartrate 5 Mg Tablet, 5 MG PO HS, (Reported) [Sugar Support] , 1 CAP PO DAILY, (Reported) Patient Home Medication List Home Medication List Reviewed: Yes Review of Systems Review of Systems Constitutional: see HPI; No chills, No fever EENTM: no symptoms reported Respiratory: No cough, No short of breath Cardiovascular: No chest pain; edema; No palpitations Gastrointestinal: No abdominal pain; loss of appetite; No nausea, No vomiting Genitourinary: no symptoms reported Musculoskeletal: joint pain, joint swelling Skin: no symptoms reported Psychiatric/Neurological: No Symptoms Reported All Other Systems Reviewed Negative Unless Noted: Yes Past Djqtchh-Wigynj-Mzlhnd Hx Patient Social History Tobacco Use?: No Smoking Status: Former Smoker (1961 quit) Substance use?: No Alcohol Use?: No Seasonal Allergies Seasonal Allergies: No Past Medical History Surgeries: Yes Abdominal, Gallbladder, Orthopedic, Prostatectomy Respiratory: No Cardiac: Yes Atrial Fibrillation, Heart Attack, High Cholesterol, Hypertension Neurological: No Genitourinary: No Gastrointestinal: No Musculoskeletal: No Endocrine: No HEENT: No Cancer: No Psychosocial: No Integumentary: No Blood Disorders: No Family Medical History Reviewed Nursing Family Hx Physical Exam-Suspected Sepsis Physical Exam Vital Signs Vital Signs - First Documented 03/10/21 12:20 Temp 36.6 Pulse 95 Resp 18 B/P (MAP) 135/65 (88) Pulse Ox 97 Capillary Refill : Less Than 3 Seconds Blood Pressure Mean: 88 Height, Weight, BMI Height: '" Weight: 216lbs. 4.2oz. 98.877684ub; 32.00 BMI Method: General Appearance: No Apparent Distress, WD/WN HEENT: PERRL/EOMI, Pharynx Normal Neck: Non Tender, Supple Respiratory: Lungs Clear, Normal Breath Sounds Cardiovascular: Regular Rate, Rhythm, No Murmur Gastrointestinal: Non Tender, Soft Back: Normal Inspection, No CVA Tenderness, No Vertebral Tenderness Extremity: Pedal Edema (2+ bilateral lower extremities to the level of the knees. States that this is markedly decreased from where it was previously.), Swelling (Left wrist), Other (Tender to palpation and pain radiating from left wrist left elbow. Normal range motion of the left elbow.) Neurologic/Psychiatric: Alert, Oriented x3 Skin: warm/dry, other (Erythema to the left wrist and distal forearm. Warm to touch.) Focused Exam Lactate Level 03/10/21 13:02: Lactic Acid Level 1.06 Lactic Acid Level Laboratory Tests Test 03/10/21 13:02 Lactic Acid Level 1.06 MMOL/L (0.50-2.00) Progress/Results/Core Measures Suspected Sepsis SIRS Temperature: Pulse: 95 Respiratory Rate: 18 Laboratory Tests 03/10/21 12:52: White Blood Count 10.3 Blood Pressure 135 /65 Mean: 88 03/10/21 13:02: Lactic Acid Level 1.06 Laboratory Tests 03/10/21 12:52: Creatinine 1.68H, INR Comment 1.3, Platelet Count 308, Total Bilirubin 0.4 Results/Orders Lab Results Laboratory Tests Test 03/10/21 12:52 03/10/21 13:02 Range/Units White Blood Count 10.3 4.3-11.0 10^3/uL Red Blood Count 4.07 L 4.30-5.52 10^6/uL Hemoglobin 11.4 L 13.3-17.7 g/dL Hematocrit 37 L 40-54 % Mean Corpuscular Volume 92 80-99 fL Mean Corpuscular Hemoglobin 28 25-34 pg Mean Corpuscular Hemoglobin Concent 31 L 32-36 g/dL Red Cell Distribution Width 14.5 10.0-14.5 % Platelet Count 308 130-400 10^3/uL Mean Platelet Volume 11.8 9.0-12.2 fL Immature Granulocyte % (Auto) 1 % Neutrophils (%) (Auto) 78 H 42-75 % Lymphocytes (%) (Auto) 9 L 12-44 % Monocytes (%) (Auto) 11 0-12 % Eosinophils (%) (Auto) 1 0-10 % Basophils (%) (Auto) 1 0-10 % Neutrophils # (Auto) 8.0 H 1.8-7.8 10^3/uL Lymphocytes # (Auto) 1.0 1.0-4.0 10^3/uL Monocytes # (Auto) 1.1 H 0.0-1.0 10^3/uL Eosinophils # (Auto) 0.1 0.0-0.3 10^3/uL Basophils # (Auto) 0.1 0.0-0.1 10^3/uL Immature Granulocyte # (Auto) 0.1 0.0-0.1 10^3/uL Prothrombin Time 16.4 H 12.2-14.7 SEC INR Comment 1.3 0.8-1.4 Activated Partial Thromboplast Time 36 H 24-35 SEC Sodium Level 135 135-145 MMOL/L Potassium Level 3.5 L 3.6-5.0 MMOL/L Chloride Level 97 L 98-107 MMOL/L Carbon Dioxide Level 25 21-32 MMOL/L Anion Gap 13 5-14 MMOL/L Blood Urea Nitrogen 36 H 7-18 MG/DL Creatinine 1.68 H 0.60-1.30 MG/DL Estimat Glomerular Filtration Rate 39 BUN/Creatinine Ratio 21 Glucose Level 116 H 70-105 MG/DL Calcium Level 8.5 8.5-10.1 MG/DL Corrected Calcium 8.9 8.5-10.1 MG/DL Total Bilirubin 0.4 0.1-1.0 MG/DL Aspartate Amino Transf (AST/SGOT) 14 5-34 U/L Alanine Aminotransferase (ALT/SGPT) 11 0-55 U/L Alkaline Phosphatase 95 40-136 U/L C-Reactive Protein High Sensitivity 4.90 H 0.00-0.50 MG/DL Total Protein 6.8 6.4-8.2 GM/DL Albumin 3.5 3.2-4.5 GM/DL Lactic Acid Level 1.06 0.50-2.00 MMOL/L My Orders Orders - MAXIMUS CARVER MD Cbc With Automated Diff (03/10/21 12:27) Comprehensive Metabolic Panel (03/10/21 12:27) Blood Culture (03/10/21 12:27) Sputum Culture (03/10/21 12:27) Urinalysis (03/10/21 12:) Urine Culture (03/10/21 12:27) Protime With Inr (03/10/21 12:27) Partial Thromboplastin Time (03/10/21 12:27) Chest 1 View, Ap/Pa Only (03/10/21 12:27) Ed Iv/Invasive Line Start (03/10/21 12:27) Vital Signs Adult Sepsis Patie Q15M (03/10/21 12:27) O2 (03/10/21 12:27) Remove Rings In Anticipation O (03/10/21 12:27) Lactic Acid Analyzer (03/10/21 12:27) Hs C Reactive Protein (03/10/21 12:27) Wrist, Left, 3 Views Or More (03/10/21 12:37) Fentanyl Inj (Sublimaze Injection) (03/10/21 12:37) Vital Signs/I&O 03/10/21 12:20 Temp 36.6 Pulse 95 Resp 18 B/P (MAP) 135/65 (88) Pulse Ox 97 Capillary Refill : Less Than 3 Seconds Blood Pressure Mean: 88 Progress Note : Progress Note Seen and evaluated. Sepsis protocol initiated due to report from physician office although blood pressure normal here. We will get x-ray of the left wrist as well. Fentanyl 25 mcg IV ordered. Monitor patient. 1422: Pain med did help some. We will go ahead and give hydrocodone 5/325 1 tablet now. He does live next door to his son and his son is able to check on him frequently. X-ray does show moderate degeneration and I do believe his pain may be related to that versus gout. He does admit to eat and a large amount of ham recently and this may be the inciting event as he does have history of gout. Does have slightly elevated CRP with normal white count and normal lactic acid. Given that there was a concern of the bug bite and slightly elevated CRP we will go ahead and initiate outpatient treatment with doxycycline for 7 days and outpatient steroids. He is to follow-up with his primary care provider this week for recheck and further evaluation. I will send a copy of the chart to him. Disc harged home with return precautions. Patient and family verbalized understanding instructions and agreement with plan. Blood pressures throughout ED stay have remained 130s to 140s systolic. Diagnostic Imaging Diagonstic Imaging: Xray Plain Films/CT/US/NM/MRI: chest Comments [facility]. [place], [place] NAME: SHABBIR LONG Shyanne CASTILLO REC#: [id number] PT STATUS: REG ER : 1930 PHYSICIAN: MAXIMUS CARVER MD ADMIT DATE: 03/10/21/ER Draft Date of Exam:03/10/21 CHEST 1 VIEW, AP/PA ONLY INDICATION: Chest pain. No prior examination available for comparison. FINDINGS: There is cardiomegaly. Some minimal bibasilar subsegmental atelectasis and pneumonitis. No pleural effusion or pneumothorax. Mediastinum is unremarkable IMPRESSION: Cardiomegaly and some minimal bibasilar subsegmental atelectasis and/or pneumonitis. Dictated on workstation # [id number] Dict: 03/10/21 1308 Trans: 03/10/21 1315 CVB [id number] Interpreted by: NEERU EMERY MD Electronically signed by: Diagonstic Imaging: Xray Plain Films/CT/US/NM/MRI: other Comments [facility] [place], [place] NAME: SHABBIR LNOG [facility] REC#: [id number] PT STATUS: REG ER : 1930 PHYSICIAN: MAXIMUS CARVER MD ADMIT DATE: 03/10/21/ER Draft Date of Exam:03/10/21 WRIST, LEFT, 3 VIEWS OR MORE INDICATION: Pain. Comparison made to prior study. No prior exam is available for comparison. FINDINGS: There are moderate osteoarthritic changes. No fracture or dislocation. Soft tissues are unremarkable. IMPRESSION: Moderately severe osteoarthritic change otherwise unremarkable. 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 Decision time for Depature: 14:23 Referrals: BRENDA MCCORMICK DO (PCP/Family) Primary Care Physician Patient Instructions: Cellulitis (Skin Infection), Adult (DC), Gout (DC), Osteoarthritis Add. Discharge Instructions: All discharge instructions reviewed with patient and/or family. Voiced understanding. Take medications as directed. You may take 1 Tylenol/acetaminophen 500 mg tablet with each dose of prescribed pain medicine. If you are not taking the prescribed pain medicine and need pain control, you may take up to 2 tablets of extra strength Tylenol every 6 to 8 hours. Do not exceed 4000 mg of acetaminophen/Tylenol in 24 hours (8 extra strength Tylenol tablets). Follow-up with your doctor this week for recheck and further evaluation. Avoid foods that increase your risk for gout including meat and cheese. Return for worse pain, swelling, fever, weakness, numbness in your hand or other concerns as needed. Scripts Prednisone (Prednisone) 20 Mg Tab 40 MG PO DAILY, #10 TAB 0 Refills Prov: MAXIMUS CARVER MD 03/10/21 Hydrocodone Bit/Acetaminophen (HYDROcodone/APAP 5 MG/325 MG TAB) 1 Tab Tab 1 TAB PO Q6H for Pain, #8 TAB 0 Refills Prov: MAXIMUS CARVER MD 03/10/21 Doxycycline Hyclate (Doxycycline Hyclate) 100 Mg Tablet 100 MG PO BID, #14 TAB 0 Refills Prov: MAXIMUS CARVER MD 03/10/21 Copy Copies To 1: BRENDA MCCORMICK TIMOTHY D MD Mar 10, 2021 12:47
--- NOTE | 2021-03-10 13:16 | Diagnostic Imaging Report ---
INDICATION: Chest pain. No prior examination available for comparison. FINDINGS: There is cardiomegaly. Some minimal bibasilar subsegmental atelectasis and pneumonitis. No pleural effusion or pneumothorax. Mediastinum is unremarkable IMPRESSION: Cardiomegaly and some minimal bibasilar subsegmental atelectasis and/or pneumonitis. Dictated by: Dictated on workstation # [id number]
[2021-03-10 13:20] LABS: BASOPHILS # (AUTO) 0.1 10^3/uL (0.0-0.1); BASOPHILS % (AUTO) 1 % (0-10); EOSINOPHILS # (AUTO) 0.1 10^3/uL (0.0-0.3); EOSINOPHILS % (AUTO) 1 % (0-10); HEMATOCRIT 37 % (40-54); HEMOGLOBIN 11.4 g/dL (13.3-17.7); LYMPHOCYTES % (AUTO) 9 % (12-44); MEAN CORPUSCULAR HEMOGLOBIN 28 pg (25-34); MEAN CORPUSCULAR HGB CONC 31 g/dL (32-36); MEAN CORPUSCULAR VOLUME 92 fL (80-99); MEAN PLATELET VOLUME 11.8 fL (9.0-12.2); MONOCYTES # (AUTO) 1.1 10^3/uL (0.0-1.0); MONOCYTES % (AUTO) 11 % (0-12); NEUTROPHILS % (AUTO) 78 % (42-75); PLATELET COUNT 308 10^3/uL (130-400); WHITE BLOOD COUNT 10.3 10^3/uL (4.3-11.0)
--- NOTE | 2021-03-10 13:20 | Diagnostic Imaging Report ---
INDICATION: Pain. Comparison made to prior study. No prior exam is available for comparison. FINDINGS: There are moderate osteoarthritic changes. No fracture or dislocation. Soft tissues are unremarkable. IMPRESSION: Moderately severe osteoarthritic change otherwise unremarkable. Dictated by: Dictated on workstation # [id number]
[2021-03-10 13:28] LABS: ALBUMIN 3.5 GM/DL (3.2-4.5)
[2021-03-10 13:29] LABS: POTASSIUM 3.5 MMOL/L (3.6-5.0)
[2021-03-10 13:30] LABS: CALCIUM 8.5 MG/DL (8.5-10.1); INR 1.3 (0.8-1.4); PROTHROMBIN TIME PATIENT 16.4 SEC (12.2-14.7)
[2021-03-10 13:31] LABS: TOTAL PROTEIN 6.8 GM/DL (6.4-8.2)
[2021-03-10 13:33] LABS: BILIRUBIN,TOTAL 0.4 MG/DL (0.1-1.0)
[2021-03-10 13:35] LABS: CREATININE SERUM 1.68 MG/DL (0.60-1.30)
[2021-03-10] MEDS ORDERED: PRD20T PO (14:29)
[2021-03-10] MEDS ORDERED: DOXY100T2 PO (14:29)
[2021-03-10] MEDS ORDERED: ACHD5005 PO (14:29)
[2021-03-10] MEDS ORDERED: predniSONE 20 MG TAB PO ONE (14:30)
[2021-03-10] MEDS ORDERED: HYDROcodone/APAP 5 MG/325 MG (LORTAB) TAB PO ONE (14:30)
[2021-03-10 14:49] VITALS: BP 145/71
== END 2021-03-10 14:48 | disposition home or self-care (01) ==
LOC: EDUNIT# 11:33 → ER 11:34
DX: M19.032 Primary osteoarthritis, left wrist (principal); M46.32 Infection of intervertebral disc (pyogenic), cervical region; I10 Essential (primary) hypertension; I25.2 Old myocardial infarction; I48.91 Unspecified atrial fibrillation; E78.00 Pure hypercholesterolemia, unspecified; Z87.891 Personal history of nicotine dependence; Z79.01 Long term (current) use of anticoagulants; Z79.899 Other long term (current) drug therapy
CPT/HCPCS: 36415; 71045; 73110; 80053; 83605; 85025; 85610; 85730; 86141; 87040